=== PATIENT | male | born 1970 ===

== ENCOUNTER 2018-12-22 22:14 | Inpatient (IN) | payer OTHER ==
--- NOTE | 2018-12-22 22:50 | C.PDOC ---
History Of Present Illness 48 year old male presents as a prescreen for heroin detox. Denies any complaints at this time. Time Seen by Provider: 12/22/18 22:28 Chief Complaint (Nursing): Substance Abuse History Per: Patient History/Exam Limitations: no limitations Onset/Duration Of Symptoms: Days Current Symptoms Are (Timing): Still Present Suicide/Self Injury Attempted (Context): None Recent travel outside of the [place]: No Past Medical History Reviewed: Historical Data, Nursing Documentation, Vital Signs Vital Signs: Last Vital Signs Temp 98 F 12/22/18 22:27 Pulse 66 12/22/18 22:27 Resp 20 12/22/18 22:27 BP 135/87 12/22/18 22:27 Pulse Ox 97 12/22/18 22:27 - Medical History PMH: HTN Family History: States: No Known Family Hx - Social History Hx Alcohol Use: No Hx Substance Use: Yes - Immunization History Hx Tetanus Toxoid Vaccination: No Hx Influenza Vaccination: No Hx Pneumococcal Vaccination: No Review Of Systems Constitutional: Negative for: Fever, Chills Cardiovascular: Negative for: Chest Pain, Palpitations Respiratory: Negative for: Cough, Shortness of Breath Gastrointestinal: Negative for: Nausea, Vomiting Neurological: Negative for: Weakness, Numbness Physical Exam - Physical Exam Appears: Non-toxic Skin: Normal Color, Warm, Dry Head: Atraumatic, Normacephalic Oral Mucosa: Moist Chest: Symmetrical, No Tenderness Cardiovascular: Rhythm Regular Respiratory: Normal Breath Sounds, No Rales, No Rhonchi, No Wheezing Gastrointestinal/Abdominal: Soft, No Tenderness Back: No CVA Tenderness Neurological/Psych: Oriented x3, Normal Speech Gait: Steady ED Course And Treatment - Laboratory Results Result Diagrams: 12/22/18 23:21 12/22/18 23:21 O2 Sat by Pulse Oximetry: 97 (room air) Pulse Ox Interpretation: Normal Medical Decision Making Medical Decision Making: Blood work and urinalysis ordered. Crisis notified. Patient medically cleared. Accepted to detox unit. Disposition - Disposition Disposition: HOSPITALIZED Disposition Time: 22:00 Condition: STABLE - POA Present On Arrival: None - Clinical Impression Clinical Impression: Opiate dependence, Depression - PA / [employer] / Resident Statement MD/DO has reviewed & agrees with the documentation as recorded. - Scribe Statement The provider has reviewed the documentation as recorded by the Lucianibdante Huerta All medical record entries made by the Scribe were at my direction and personally dictated by me. I have reviewed the chart and agree that the record accurately reflects my personal performance of the history, physical exam, medical decision making, and the department course for this patient. I have also personally directed, reviewed, and agree with the discharge instructions and disposition.
[2018-12-22 23:26] LABS: BASO % 0.8 % (0.0-2.0); EOS # 0.3 K/uL (0.0-0.7); EOS % 5.3 % (0.0-4.0); HEMOGLOBIN 14.3 g/dL (12.0-18.0); LYMPH # 1.8 K/uL (1.0-4.3); MEAN CELL VOLUME 88.2 fL (80.0-94.0); MEAN CORPUSCULAR HEMOGLOBIN 29.2 pg (27.0-31.0); MEAN CORPUSCULAR HGB CONC 33.1 g/dL (33.0-37.0); MEAN PLATELET VOLUME 7.8 fL (7.2-11.7); MONO # 0.7 K/uL (0.0-0.8); MONO % 13.5 % (0.0-10.0); NEUT # 2.4 K/uL (1.8-7.0); NEUT % 46.4 % (50.0-75.0); NRBC % 0.1 % (0.0-2.0); RBC 4.89 Mil/uL (4.40-5.90); RED CELL DISTRIBUTION WIDTH 13.6 % (11.5-14.5); WHITE BLOOD COUNT 5.3 K/uL (4.8-10.8)
[2018-12-22 23:27] LABS: SQUAMOUS EPITHIAL < 1 /hpf (0-5); URINE BILIRUBIN NEGATIVE (NEGATIVE); URINE BLOOD NEGATIVE (NEGATIVE); URINE CLARITY Clear (Clear); URINE COLOR Yellow (YELLOW); URINE GLUCOSE (UA) NORMAL (Normal); URINE LEUKOCYTE ESTERASE NEG Leu/uL (Negative); URINE PROTEIN NEGATIVE (NEGATIVE); URINE UROBILINOGEN NORMAL mg/dL (0.2-1.0)
[2018-12-22 23:37] LABS: ALB/GLOB RATIO 1.3 (1.0-2.1); ALT/SGPT 80 U/L (21-72); AST/SGOT 67 U/L (17-59); BLOOD UREA NITROGEN 19 mg/dL (9-20); CALCIUM 8.9 mg/dl (8.6-10.4); GFR NON-AFRICAN AMERICAN > 60
[2018-12-22 23:40] LABS: BARBITURATES, UR NEGATIVE (NEGATIVE); BENZODIAZEPINES, UR NEGATIVE (NEGATIVE); PHENCYCLIDINE, UR NEGATIVE (NEGATIVE)
[2018-12-22 23:44] LABS: OPIATES, UR POSITIVE (NEGATIVE)
--- NOTE | 2018-12-23 01:34 | PCM.BM ---
<Ronnie Barahona - Last Filed: 12/23/18 01:32> Treatment Plan Problems - Problems identified on initial assessmt Denial Date Initiated: 12/23/18 Time Initiated: :33 Assessment reference: NA Status: Active Defensive Coping Date Initiated: 12/23/18 Time Initiated: 01:33 Assessment reference: NA Status: Active Treatment assets and liabiliti Patient Assests: cooperative, ADL independent, physically healthy, cognitively intact, good interpersonal skills Patient Liabilities: substance abuse - Milieu Protocol Maintain good personal hygiene: daily Encourage regular showers, daily Remind patient to perform daily oral care, daily Assist patient to perform ADL's Maintain personal safety: every shift Educate patient to report safety concerns to staff, every shift Monitor environment for contraband/sharps Medication safety: Monitor for expected outcome, potential side effects: every shift, Assess barriers to learning: every shift, Assess readiness for medication education: every shift <Vivian Shi - Last Filed: 12/23/18 12:10> Family Contact Family involvement: No known Family/SO - Goals for Treatment Patient goals for treatment: Complete detox and apply for short-term rehab. Discharge/Continuing Care - Education Needs Education Needs: Patient Medication, Patient Diagnosis/Disease Process, Patient Coping Skills, Patient Anger Management skills, Patient Placement options, Patient Community resources - Discharge Discharge Criteria: No longer exhibiting s/s of withdrawal, Reduction of target symptoms Discharge to:: Substance Abuse Rehab - Treatment Team Participation Patient/Family/SO Statement: 12/23/18 12:09 "I wanna try short-term rehab but I'll consider Vivitrol when I'm done with that..." Discussed with Family/SO: No Was Patient/Family/SO present at Treatment Team Meeting: Yes
[2018-12-23] MEDS ORDERED: Aluminum Hydroxide/Magnesium Hydroxide Susp (30 mL) PO PRN (08:11)
--- NOTE | 2018-12-23 08:11 | PCM.PSYCH ---
Initial Psychiatric Evaluation - Initial Psychiatric Evaluation Type of Admission: Voluntary Legal Status: Capacity Chief Complaint (in patient's own words): "I need detox" History of Present Illness and Precipitating Events: Patient is a 48yo male who is homeless, single with no children, and drives trucks for a living. Patient is here for cessation of heroin use. He used 10 bags intravenously, which is his normal daily quantity and he has been using heroin for 20 years. He started on prescription opioid pills, but he does not use pills any longer. Patient reports overdosing 7 times in the past, the most recent being 3 weeks a go. Patient also smokes cocaine intermittently, ".5 gram" or "$3 worth". Patient denies use of alcohol, tobacco, or any other drugs. Patient took suboxone at times to cope with withdrawals Patient denies hallucinations but reports occasional instances of paranoia with sleep deprivation. Patient complains of withdrawal symptoms: crampy leg pain, yawning, anxiety, diaphoresis, piloerection, and nausea. COWS is above 10 Patient admits to having low energy. He denies suicidal ideation, homicidal ideation. Not manic or psychotic. He feels depressed as a result of his use. Hospitalizations: patient reports admission to detox units 20 times and admission to rehab units 7 times (last time was 7 months ago). He is interested in a short-term (30 day) rehab program. He has cellulitis on his left arm, for which he initiated treatment 1 day prior to admission here, with clindamycin, and we will f/u if he needs IV Psychiatric hx: depression but no admissions PMH: HTN, neuropathic pain PSH: shoulder surgery 2 years ago Family hx: HTN Meds: Gabapentin 600, lisinopril 20 Current Medications: Active Medications Generic Name Dose Route Start Last Admin Trade Name Freq PRN Reason Stop Dose Admin Al Hydrox/Mg Hydrox/Simethicone 30 ml 12/23/18 08:11 Maalox 30 Ml PO TID PRN Indigestion / Heartburn Clonidine HCl 0.1 mg 12/23/18 00:49 Catapres PO Q6 PRN s/s of withdrwal cows=5 Dicyclomine HCl 10 mg 12/23/18 00:52 Bentyl PO Q6 PRN Muscle spasm Hydroxyzine HCl 25 mg 12/23/18 00:51 Atarax PO Q6 PRN Anxiety Ibuprofen 600 mg 12/23/18 00:52 Motrin Tab PO Q6 PRN Pain, moderate (4-7) Loperamide HCl 2 mg 12/23/18 08:11 Imodium PO Q8 PRN Diarrhea Ondansetron HCl 4 mg 12/23/18 08:11 Zofran Tab PO Q8 PRN Nausea/Vomiting Trazodone HCl 100 mg 12/23/18 00:51 Desyrel PO HS PRN Insomnia Past Psychiatric History - Past Psychiatric History Pertinent Medical Hx (Current Medical&Sleep Prob, Allergies): Allergies Allergy/AdvReac Type Severity Reaction Status Date / Time No Known Allergies Allergy Verified 12/22/18 22:32 Review of Systems - Psychiatric Psychiatric: Abnormal Sleep Pattern, Anhedonia, Anxiety, Depression, Difficulty Concentrating. absent: Hallucinations, Homicidal Ideation, Paranoia, Suicidal Ideation Mental Status Examination - Personal Presentation Personal Presentation: Looks stated age - Affect Affect: Constricted - Motor Activity Motor Activity: Calm - Reliability in Providing Information Reliability in Providing Information: Good - Speech Speech: Organized - Mood Mood: Depressed, Anxious - Formal Thought Process Formal Thought Process: No Impairment - Cognitive Functions Orientation: Person, Place, Situation, Time Sensorium: Alert Attention/Concentration: Easily distracted Estimate of Intelligence: Average Judgement: Intact, as evidence by: Insight regarding need for hospitalization Memory: Recent intact, as evidence by: Ability to recall events of the day, Remote intact, as evidenced by: Abilit to recall sig. life events - Risk Risk: Withdrawal, Diminished functioning - Strength & Assets Inventory Strength & Assets Inventory: Cooperative - Limitations Limitations: Other DSM 5 DX - DSM 5 DSM 5 Diagnosis: Opioid withdrawal Opioid use severe Cocaine use severe Depressive d/o - unspecified - Recommended/Plan of Treatment Treatment Recommendations and Plan of Treatment: Taper with subutex Gabapentin for augmentation if needed As needed medications All risks, benefits and alternatives of the meds discussed, and the pt agreed and understood. Attend groups and activities Supportive therapy and psychoeducation [place] for abstinence CBT for relapse prevention Encourage MAT Refer to rehab or IOP, and self-help groups Teach healthy lifestyle methods, i.e. diet, exercise, meditation Smoking cessation with PR Nicotine patch if needed 34 min Projected ELOS: 4-5 days Prognosis: good w treatment - Smoking Cessation Smoking Cessation Initiated: Yes
[2018-12-23] MEDS ORDERED: Buprenorphine Hydrochloride 2 mg SL ONE ×2 (10:00→10:45)
[2018-12-24] MEDS: Buprenorphine Hydrochloride 2 mg SL SCH (09:27)
--- NOTE | 2018-12-24 23:55 | PCM.PYCHPN ---
Psychiatric Progress Note - Psychiatric Progress Note Patient Chief Complaint: "I need detox" Medication Change: Yes Medical Record Reviewed: Yes Mental Status Examination - Cognitive Function Orientation: Person, Place, Situation, Time - Mood Mood: Depressed, Anxious - Affect Affect: Constricted - Formal Thought Process Formal Thought Process: No Impairment Goal/Treatment Plan - Goal/Treatment Plan Progress Toward Problem(s) and Goals/Treatment Plan: Taper with subutex Gabapentin for augmentation if needed As needed medications All risks, benefits and alternatives of the meds discussed, and the pt agreed and understood. Attend groups and activities Supportive therapy and psychoeducation [place] for abstinence CBT for relapse prevention Encourage MAT Refer to rehab or IOP, and self-help groups Teach healthy lifestyle methods, i.e. diet, exercise, meditation Smoking cessation with [place] Nicotine patch if needed 34 min
[2018-12-25] MEDS: Buprenorphine Hydrochloride 2 mg SL SCH (09:10)
[2018-12-25 17:51] LABS: BASO # 0.1 K/uL (0.0-0.2); EOS # 0.2 K/uL (0.0-0.7); EOS % 3.4 % (0.0-4.0); HEMOGLOBIN 14.3 g/dL (12.0-18.0); LYMPH # 2.5 K/uL (1.0-4.3); LYMPH % 38.5 % (20.0-40.0); MEAN CORPUSCULAR HEMOGLOBIN 29.3 pg (27.0-31.0); MEAN CORPUSCULAR HGB CONC 33.3 g/dL (33.0-37.0); MEAN PLATELET VOLUME 7.6 fL (7.2-11.7); MONO # 0.7 K/uL (0.0-0.8); MONO % 10.3 % (0.0-10.0); NEUT % 46.8 % (50.0-75.0); NRBC % 0.1 % (0.0-2.0); RBC 4.87 Mil/uL (4.40-5.90); RED CELL DISTRIBUTION WIDTH 13.4 % (11.5-14.5); WHITE BLOOD COUNT 6.4 K/uL (4.8-10.8)
--- NOTE | 2018-12-26 07:49 | PCM.PYCHPN ---
Psychiatric Progress Note - Psychiatric Progress Note Patient seen today, length of contact: 15 min Medication Change: Yes Medical Record Reviewed: Yes Mental Status Examination - Cognitive Function Orientation: Person, Place, Situation, Time Memory: Intact Attention: WNL Concentration: Poor Association: WNL Fund of Knowledge: Poor - Mood Mood: Depressed, Anxious - Affect Affect: Constricted - Speech Speech: Soft - Formal Thought Process Formal Thought Process: No Impairment - Suicidal Ideation Suicidal Ideation: No - Homicidal Ideation Homicidal Ideation: No Goal/Treatment Plan - Goal/Treatment Plan Need for Continued Stay: Remain at risks for inpatient hospitalization Progress Toward Problem(s) and Goals/Treatment Plan: Opioid withdrawal Opioid use severe Cocaine use severe Depressive d/o - unspecified Taper with subutex Gabapentin for augmentation if needed As needed medications All risks, benefits and alternatives of the meds discussed, and the pt agreed and understood. Attend groups and activities Supportive therapy and psychoeducation [place] for abstinence CBT for relapse prevention Encourage MAT Refer to rehab or IOP, and self-help groups Teach healthy lifestyle methods, i.e. diet, exercise, meditation Smoking cessation with [place] Nicotine patch if needed
[2018-12-26] MEDS: Buprenorphine Hydrochloride 2 mg SL SCH (09:17)
[2018-12-27] MEDS: Buprenorphine Hydrochloride 2 mg SL SCH (09:09)
[2018-12-27 10:36] VITALS: RESP 18
[2018-12-28 06:35] VITALS: O2SAT 95
[2018-12-28] MEDS: Buprenorphine Hydrochloride 2 mg SL SCH (09:10)
[2018-12-28 09:17] VITALS: BP 131/80; PULSE 78; TEMP 97.7
--- NOTE | 2018-12-28 09:34 | PCM.PYCHDC ---
Mental Status Examination - Mental Status Examination Orientation: Person, Place, Situation, Time Mood: Neutral Affect: Constricted Speech: Soft Attention: WNL Concentration: WNL Association: WNL Fund of Knowledge: WNL Formal Thought Process: No Impairment Description of patient's judgement and insight: good, fair Psychotic Thoughts and Behaviors: denies any AVH Suicidal Ideation: No Current Homicidal Ideation?: No Discharge Summary - Discharge Note Consultations:: List each consultation separately and include: 1. Reason for request. 2. Findings. 3. Follow-up Summary of Hospital Course include:: 1. Description of specific treatment plan utilized for patients during their course of treatmen. 2. Summarize the time- course for resolution of acute symptoms and/or regressed behaviors. 3. Describe issues identified and worked on during hospitalization. 4. Describe medication utilized. 5. Describe medical problems identified and treated. 6. Reassessment of suicide risk - Final Diagnosis (DSM 5) Condition upon Discharge: STABLE DSM 5: Opioid withdrawal Opioid use severe Cocaine use severe Depressive d/o - unspecified Disposition: HOME/ ROUTINE Follow-up Treatment Plan: Opioid withdrawal Opioid use severe Cocaine use severe Depressive d/o - unspecified Taper with subutex Gabapentin for augmentation if needed As needed medications All risks, benefits and alternatives of the meds discussed, and the pt agreed and understood. Attend groups and activities Supportive therapy and psychoeducation [place] for abstinence CBT for relapse prevention Encourage MAT Refer to rehab or IOP, and self-help groups Teach healthy lifestyle methods, i.e. diet, exercise, meditation Smoking cessation with [place] Nicotine patch if needed Prescriptions/Medication Reconciliation: Clindamycin [Cleocin] 300 mg PO TID 7 Days cap Gabapentin [Neurontin] 600 mg PO TID #90 tab Lisinopril [Zestril] 20 mg PO DAILY #30 tab traZODone [Desyrel] 100 mg PO HS PRN #30 tab PRN Reason: Insomnia - Smoking Cessation Smoking Cessation Medication prescribed: No - Antipsychotic Medications Pt discharged on 2 or more routine antipsychotic medications: No
== END 2018-12-28 09:52 | disposition home or self-care (01) | DRG 744 ==
LOC: C.ER 22:14 → C.7D 12-23 00:27
PROVIDERS: ADMIT Psychiatry & Neurology Psychiatry; ATTEND Psychiatry & Neurology Psychiatry
PROC: HZ2ZZZZ Detoxification Services for Substance Abuse Treatment (ICD-10-PCS; principal; 2018-12-23)
PROC: HZ52ZZZ Individual Psychotherapy for Substance Abuse Treatment, Cognitive-Behavioral (ICD-10-PCS; 2018-12-23)
PROC: HZ59ZZZ Individual Psychotherapy for Substance Abuse Treatment, Supportive (ICD-10-PCS; 2018-12-23)
PROC: HZ56ZZZ Individual Psychotherapy for Substance Abuse Treatment, Psychoeducation (ICD-10-PCS; 2018-12-23)
PROC: HZ42ZZZ Group Counseling for Substance Abuse Treatment, Cognitive-Behavioral (ICD-10-PCS; 2018-12-23)
PROC: HZ46ZZZ Group Counseling for Substance Abuse Treatment, Psychoeducation (ICD-10-PCS; 2018-12-23)
PROC: GZHZZZZ Group Psychotherapy (ICD-10-PCS; 2018-12-23)
PROC: GZ58ZZZ Individual Psychotherapy, Cognitive-Behavioral (ICD-10-PCS; 2018-12-23)
PROC: GZ56ZZZ Individual Psychotherapy, Supportive (ICD-10-PCS; 2018-12-23)
DX: F11.23 Opioid dependence with withdrawal (principal); L03.114 Cellulitis of left upper limb; F14.20 Cocaine dependence, uncomplicated; F32.9 Major depressive disorder, single episode, unspecified; F41.9 Anxiety disorder, unspecified; I10 Essential (primary) hypertension; Z72.820 Sleep deprivation; Z59.0 Homelessness